=== PATIENT | male | born 1975 | race Caucasian/White ===

== ENCOUNTER 2018-05-08 07:59 | Outpatient (CLI) | payer BC ==
--- NOTE | 2018-05-08 10:50 | MRI ---
MRI OF THE BRAIN WITHOUT AND WITH CONTRAST: Date: 05/08/18 COMPARISON: None. HISTORY: Left-sided hearing loss, vestibular neuritis. TECHNIQUE: Multiplanar, multisequence MR imaging of the brain is obtained with and without contrast using an int ernal auditory canal protocol. FINDINGS: The diffusion-weighted imaging demonstrates no evidence for acute infarction. There is minimal mucosal thickening involving the maxillary sinuses. The arterial flow-voids at the a xial level of the skull base appear grossly unremarkable on the T2-weighted imaging. Regional bone marrow signal intensity appears within normal limits. Thin section T2-weighted imaging through the skull base demonstrates normal signal intensity at the l evel of the cerebellopontine angle, internal auditory canal, cochlea, vestibule, and semicircular can als. The FLAIR imaging demonstrates no focal area of abnormal signal intensity within the white matter, an d there is no midline shift, mass effect, or ventricular enlargement. Postcontrast imaging, including thin section, fat saturated imaging through the skull base, demonstra vanessa no abnormal enhancement or mass lesion in the region of the cerebellopontine angle, internal cande tory canal, cochlea, vestibule, or semicircular canals on either side. Whole brain postcontrast imaging demonstrates no abnormal enhancement within the brain parenchyma. IMPRESSION: Unremarkable contrast enhanced brain MRI using the internal auditory canal protocol. POS: [facility]
[2018-05-08] MEDS ORDERED: Gadobenate Dimeglumine 529 MG/1 ML (20ML VIAL) ONE (11:24)
== END 2018-05-08 08:00 | disposition home or self-care (01) ==
LOC: MRI 07:59
PROVIDERS: ATTEND Otolaryngology Plastic Surgery within the Head & Neck
DX: H81.20 Vestibular neuronitis, unspecified ear (principal); H91.20 Sudden idiopathic hearing loss, unspecified ear
CPT/HCPCS: 70553; A9579

== ENCOUNTER 2018-11-14 09:59 | Outpatient (CLI) | payer BC ==
--- NOTE | 2018-11-14 10:44 | RAD ---
LUMBAR SPINE TWO VIEWS: HISTORY: Low back pain. FINDINGS: No fracture, subluxation, or bony destruction is seen. POS: [facility]
== END 2018-11-14 10:00 | disposition home or self-care (01) ==
LOC: SCSRAD 09:59
PROVIDERS: ATTEND Family Medicine
DX: M54.5 Low back pain (principal); R00.2 Palpitations
CPT/HCPCS: 72100